=== PATIENT | male | born 1965 | race Two or more races ===

== ENCOUNTER 2018-12-11 10:09 | Inpatient (IN) | payer OTHER ==
[~2018-12-11] VITALS: Ht 182.9 cm; Wt 98.9 kg
[2018-12-11] MEDS ORDERED: SOD CHLORIDE 0.9% 1,000 ML IV STA (10:51)
--- NOTE | 2018-12-11 10:53 | ERD ---
ER Documentation Chief Complaint Chief Complaint PALPITATIONS FOR A WHILE, SOB GETTING WORKS COUPLE OF WKS HPI 53-year-old man complaining of 2 weeks of palpitations and shortness of breath, dyspnea on exertion. Patient states he has had palpitations for longer than 2 weeks but the shortness of breath is somewhat new. Patient denies cough, no fevers or chills, no calf or leg swelling. Patient denies alcoholism or heavy drinking, denies history of atrial fibrillation or thyroid problems. ROS All systems reviewed and are negative except as per history of present illness. Medications Home Meds No Active Prescriptions or Reported Meds Allergies Allergies: Coded Allergies: No Known Allergy (Unverified , 12/11/18) PMhx/Soc History of Surgery: No Anesthesia Reaction: No Hx Neurological Disorder: No Hx Respiratory Disorders: No Hx Cardiac Disorders: No Hx Psychiatric Problems: No Hx Miscellaneous Medical Probl: Yes (LIVER CIRRHOSIS) Hx Alcohol Use: No Hx Substance Use: No Hx Tobacco Use: Yes (QUIT ) FmHx Family History: No diabetes Physical Exam Vitals Vital Signs Date Temp Pulse Resp B/P (MAP) Pulse Ox O2 O2 Flow FiO2 Time Delivery Rate 12/11/18 90 15 117/94 99 Room Air 12:10 (102) 12/11/18 97.7 76 18 146/99 99 10:15 (115) Physical Exam GENERAL: Well-developed, well-nourished, well-hydrated, in no apparent distress, looks nontoxic in appearance HEENT: Moist mucous membranes, pink conjunctiva, no cervical spine tenderness or step-off deformities, no goiter, no jaundice or icterus, extraocular movements intact without pain. \ NEURO: Alert and oriented 3, cranial nerves II through XII intact bilaterally, pupils equal round reactive to light, no focal deficits or facial asymmetry, sensation intact distally Strength 5/5 in upper and lower extremities bilaterally CARDIAC: Tachycardic and regular, no murmurs LUNGS: Clear bilaterally no wheezing crackles or stridor ABDOMEN: Soft nontender, no guarding, no rigidity, no rebound, no psoas sign no obturator sign. Normoactive bowel sounds SKIN: Warm and dry to touch, no abrasions, contusions, or hematomas, no lacerations, no ecchymosis, no target lesions, and without ulcers EXTREMITIES: No clubbing cyanosis or edema, calves are bilaterally symmetrical, no Homans sign, no popliteal cord sign. Distal pulses equal and bilateral PSYCH: Normal affect without agitation or irritability Result Diagram: 12/11/18 1040 12/11/18 1040 Results 24 hrs Laboratory Tests Test 12/11/18 10:40 White Blood Count 7.1 10^3/ul Red Blood Count 5.76 10^6/ul Hemoglobin 17.4 g/dl Hematocrit 50.2 % Mean Corpuscular Volume 87.2 fl Mean Corpuscular Hemoglobin 30.2 pg Mean Corpuscular Hemoglobin Concent 34.7 g/dl Red Cell Distribution Width 13.0 % Platelet Count 150 10^3/UL Mean Platelet Volume 12.9 fl Immature Granulocytes % 0.300 % Neutrophils % 47.5 % Lymphocytes % 40.6 % Monocytes % 7.4 % Eosinophils % 3.5 % Basophils % 0.7 % Nucleated Red Blood Cells % 0.0 /100WBC Immature Granulocytes # 0.020 10^3/ul Neutrophils # 3.4 10^3/ul Lymphocytes # 2.9 10^3/ul Monocytes # 0.5 10^3/ul Eosinophils # 0.3 10^3/ul Basophils # 0.1 10^3/ul Nucleated Red Blood Cells # 0.0 10^3/ul Sodium Level 144 mmol/L Potassium Level 4.0 mmol/L Chloride Level 107 mmol/L Carbon Dioxide Level 28 mmol/L Anion Gap 9 Blood Urea Nitrogen 17 mg/dl Creatinine 1.09 mg/dl Est Glomerular Filtrat Rate mL/min > 60 mL/min Glucose Level 95 mg/dl Calcium Level 10.0 mg/dl Total Bilirubin 0.8 mg/dl Direct Bilirubin 0.00 mg/dl Indirect Bilirubin 0.8 mg/dl Aspartate Amino Transf (AST/SGOT) 45 IU/L Alanine Aminotransferase (ALT/SGPT) 74 IU/L Alkaline Phosphatase 82 IU/L Troponin I < 0.012 ng/ml B-Type Natriuretic Peptide 649 PG/ML Total Protein 7.7 g/dl Albumin 4.6 g/dl Globulin 3.10 g/dl Albumin/Globulin Ratio 1.48 Lipase 224 U/L Thyroid Stimulating Hormone (TSH) < 0.015 MIU/L Free Triiodothyronine (T3) pg/mL 6.75 pg/ml Current Medications Medications Dose Sig/Jesse Start Time Status Last (Trade) Ordered Route PRN Stop Time Admin Dose Reason Admin Aspirin 162 mg ONCE ONCE 12/11/18 DC 12/11/18 (Aspirin) PO 11:00 10:59 12/11/18 11:01 Sodium 1,000 ml @ Q1H STAT 12/11/18 DC 12/11/18 Chloride 1,000 mls/hr IV 10:51 11:00 12/11/18 11:50 Propranolol 40 mg ONCE ONCE 12/11/18 DC 12/11/18 HCl PO 11:30 11:18 (Inderal) 12/11/18 11:31 Procedures/MDM IV line was established patient was placed on cardiac rehabilitation program director rhythm strip revealed a you made fun of improved only over and over again narrow complex tachycardia at 160 bpm with upright P and T waves. Patient was afebrile EKG performed, read by me revealed an atrial fibrillation with rapid ventricular rate at 149 bpm, normal axis, right ventricular conduction delay QRS duration of 104 ms, no concerning ST elevations or depressions noted I administered 1 L normal saline IV, aspirin 162 mg p.o. for cardioprotective measures, propranolol 40 mg p.o. x1 One AP view of the chest performed, read by me reveals no acute infiltrates, normal mediastinum, sharp costophrenic and cardiac borders, no air under the diaphragm. Otherwise unremarkable chest x-ray. CBC and electrolytes were normal, liver function tests were normal, troponin was negative. EKG #2 was performed, read by me revealed an atrial fibrillation with rapid ventricular response at 101 bpm, normal axis, right ventricular conduction delay QRS duration 101 ms, no concerning ST elevations or depressions noted. Critical Care: Time: 44 minutes, this was time separate from other billable procedures. Treatments/Evaluations: Close monitoring and treatment of unstable vital signs, cardiorespiratory, and neurologic status, while maintaining tight balance of fluid, respiratory, and cardiac interventions. TSH level was low, free T3 level elevated Patient will be admitted to telemetry setting for continued medical management and possible cardiology and endocrinology consultations Departure Diagnosis: Primary Impression: Atrial fibrillation with RVR Additional Impression: Hyperthyroidism Condition: DOMINIQUE Veloz MD Dec 11, 2018 10:53
[2018-12-11] MEDS ORDERED: ASPIRIN 81 MG TAB PO ONE (11:00)
[2018-12-11] MEDS ORDERED: PROPRANOLOL 40 MG TAB PO ONE (11:30)
--- NOTE | 2018-12-11 15:53 | HP ---
Date/Time of Note Date/Time of Note DATE: 12/11/18 TIME: 15:53 Assessment/Plan VTE Prophylaxis Pharmacological prophylaxis: LMWH Lines/Catheters IV [facility]from [facility] Saline Lock Assessment/Plan Hospital Course 53-year-old male with a remote history of cirrhosis secondary to hepatitis C currently in remission who came to the emergency room with dyspnea and palpitations and was found to have evidence of A. fib with RVR and hyperthyroidism, who was admitted to inpatient setting for further treatment evaluation. 1. A. fib with RVR. -Continue rate control with beta-blockers. -Obtain cardiology consult. -Obtain 2D echocardiogram to evaluate left ventricular ejection fraction. -Therapeutic anticoagulation will be deferred to cardiology. 2. Hyperthyroidism. -Will start the patient on appropriate therapy. -Obtain endocrinology evaluation. 3. History of hepatitis C and cirrhosis. 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 4. Alcohol abuse. -Start thiamine supplementation. Plan: The patient will be admitted to inpatient telemetry floor. The patient will be started on a low-cholesterol diet. The patient will be started on DVT prophylaxis. The patient will remain a full code. Activities will be as tolerated. The rest of the patient's management will be based on the clinical course, inputs from consultants, and the results of diagnostic studies. Based on the patient's clinical presentation, he most probably requires at least 2 midnights' stay for further management and evaluation of his clinical presentation. The patient was seen in collaboration with Dr. Sharma. Result Diagram: 12/11/18 1040 12/11/18 1040 Results 24hrs Laboratory Tests Test 12/11/18 10:40 White Blood Count 7.1 Red Blood Count 5.76 Hemoglobin 17.4 Hematocrit 50.2 Mean Corpuscular Volume 87.2 Mean Corpuscular Hemoglobin 30.2 Mean Corpuscular Hemoglobin Concent 34.7 Red Cell Distribution Width 13.0 Platelet Count 150 Mean Platelet Volume 12.9 H Immature Granulocytes % 0.300 Neutrophils % 47.5 Lymphocytes % 40.6 Monocytes % 7.4 Eosinophils % 3.5 Basophils % 0.7 Nucleated Red Blood Cells % 0.0 Immature Granulocytes # 0.020 Neutrophils # 3.4 Lymphocytes # 2.9 Monocytes # 0.5 Eosinophils # 0.3 Basophils # 0.1 Nucleated Red Blood Cells # 0.0 Sodium Level 144 Potassium Level 4.0 Chloride Level 107 Carbon Dioxide Level 28 Anion Gap 9 Blood Urea Nitrogen 17 Creatinine 1.09 Est Glomerular Filtrat Rate mL/min > 60 Glucose Level 95 Calcium Level 10.0 Total Bilirubin 0.8 Direct Bilirubin 0.00 Indirect Bilirubin 0.8 Aspartate Amino Transf (AST/SGOT) 45 Alanine Aminotransferase (ALT/SGPT) 74 H Alkaline Phosphatase 82 Troponin I < 0.012 B-Type Natriuretic Peptide 649 H Total Protein 7.7 Albumin 4.6 Globulin 3.10 Albumin/Globulin Ratio 1.48 Lipase 224 Thyroid Stimulating Hormone (TSH) < 0.015 L Free Thyroxine 2.09 H Free Triiodothyronine (T3) pg/mL 6.75 H HPI/ROS Admit Date/Time Admit Date/Time Hx of Present Illness Reason for admission: Dyspnea, palpitations, A. fib with RVR in the emergency room. Consultants 1. Lang Long MD, Cardiology. 2. Phillips MD, Endocrinology. This is a 53-year-old male with past medical history of hepatitis C and underlying cirrhosis currently in remission who came to the emergency room with chief complaint of dyspnea and palpitations. The patient verbalized that he has had intermittent episodes of palpitations for the past few weeks or so. He sought medical attention at the local clinic and they were unable to help him. He came to the emergency room on 12/11/2018 because of significant shortness of breath. In the emergency room, the patient was noticed to be in atrial fibri llation with rapid ventricular response. The patient was given a single dose of propranolol with improvement in the heart rate. The patient denied any chest pain. He was complaining of nonspecific dizziness. He also complained of floaters occasionally. He denied any nausea, vomiting, diaphoresis, fevers, or chills. In the emergency room at [facility], he was noticed to have A. fib with RVR. He was given aspirin along with beta-blockers. The patient's initial troponins were negative. The patient was noted to have evidence of underlying hyperthyroidism. ROS Constitutional: no complaints Eyes: other (Floaters) ENT: no complaints Respiratory: shortness of breath Cardiovascular: lightheadedness, palpitations Gastrointestinal: no complaints Genitourinary: no complaints Musculoskeletal: no complaints Skin: no complaints Neurologic: no complaints Endocrine: no complaints Lymphatic: no complaints Psychological: no complaints Immunologic: no complaints PMH/Family/Social Past Medical History 1. Cirrhosis secondary to hepatitis C, status post therapy. 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 Lives at home with his family. Alcohol Use: heavy Smoking Status: Former smoker Drug Use: none Exam/Review of Systems Vital Signs Vitals Vital Signs Date Temp Pulse Resp B/P (MAP) Pulse Ox O2 O2 Flow FiO2 Time Delivery Rate 12/11/18 96 16 126/96 98 Room Air 14:32 (106) 12/11/18 97.7 10:15 Exam Exam General: Adequately build 53 year-old male lying in bed in no apparent distress. HEENT: Normocephalic, atraumatic. Eyes: Anicteric sclerae, conjunctivae clear. ENT: Nasal septum midline, oral mucosa moist. Neck supple, no JVD noticed. Respiratory: Bilaterally clear breath sounds. No use of accessory muscles of respiration. No adventitious breath sounds. Cardiovascular: S1, S2 heard. Irregularly irregular rhythm. Abdomen: Soft, nontender, and nondistended. Bowel sounds positive in all 4 quadrants. Genitourinary: Deferred. Extremities: No cyanosis, no clubbing, no edema. Peripheral pulses palpable. Neurologic: Cranial nerves II through XII grossly intact. The patient is awake, alert, and oriented. Skin: Normal skin turgor. No skin rashes. Additional Comments CXR IMPRESSION: Mild Cardiomegaly. EARLE ABBASI NP Dec 11, 2018 15:53
--- NOTE | 2018-12-11 16:14 | CONS ---
Assessment/Plan Assessment/Plan Problems: (1) Hyperthyroidism Status: Acute Comment: This is a new diagnosis. Based on his laboratory testing I do not believe this is euthyroid sick I believe this is real thyrotoxicosis. Will be started on methimazole therapy. This is not thyroid storm he does not need em ergency procedures. (2) Atrial fibrillation with RVR Status: Acute Comment: As per primary care team and possible cardiology. Please note that this may be from atrial fibrillation but given his alcohol usage he also have to keep that in the differential. Beta-blockade especially given the history of cirrhosis would be a consideration I would recommend using nadolol in this case (3) Hepatic cirrhosis due to chronic hepatitis C infection Status: Chronic Comment: Noted and status post Harvoni treatment. He is under the care of Dr. Bernard Talavera (4) Esophageal varices determined by endoscopy Status: Chronic Comment: Noted. (5) Alcohol abuse, episodic Status: Chronic Comment: Thiamine treatment Consultation Date/Type/Reason Admit Date/Time December 11, 2018 Date of Consultation: Dec 11, 2018 Type of Consult Endocrinology Reason for Consultation Thyrotoxicosis is a new diagnosis presenting his A. fib with rapid ventricular response and dyspnea Requesting Provider: EARLE ABBASI NP Date/Time of Note DATE: 12/11/18 TIME: 16:07 Hx of Present Illness Pleasant 53-year-old [place] gentleman-, who had no known prior history of thyroid disorder. He had been noting a sensation of palpitations for several weeks and progressively worsening dyspnea especially dyspnea on exertion. Is also having a sense of anxiety. He denies any temperature intolerance for heat or cold, he denies any hyper defecation, he denies any tremor, he denies any weight loss. He has not been on any medications in the recent past. In the somewhat more distant past he had just completed a course of Harvoni for chronic active hepatitis C under the guidance of Dr. Bernard Talavera Constitutional: no complaints (No fevers chills or sweats) Eyes: no complaints ENT: no complaints Respiratory: shortness of breath (On exertion) Cardiovascular: palpitations Gastrointestinal: no complaints Genitourinary: no complaints Musculoskeletal: no complaints Skin: no complaints Neurologic: no complaints Endocrine: no complaints Past Medical History Medical History: hepatitis (Chronic active hepatitis C with history of varices in the esophagus but not in the stomach), hyperthyroid, other (Smoking none x10 years; active alcohol consumption) Home Meds No Active Prescriptions or Reported Meds Medications Current Medications Metoprolol Tartrate (Lopressor) 25 mg BID PO ; Start 12/11/18 at 21:00; Status UNV IV Flush (NS 3 ml) 3 ml PER PROTOCOL IV ; Start 12/11/18 at 16:30; Status UNV Ondansetron HCl (Zofran Inj) 4 mg Q6H PRN IV NAUSEA/VOMITING; Start 12/11/18 at 16:30; Status UNV Acetaminophen (Tylenol Tab) 650 mg Q6H PRN PO .PAIN 1-3 OR TEMP; Start 12/11/18 at 16:30; Status UNV Enoxaparin Sodium (Lovenox) 40 mg DAILY SC ; Start 12/12/18 at 09:00; Status UNV Allergies: Coded Allergies: No Known Allergy (Unverified , 12/11/18) Past Surgical History Past Surgical Hx: no surgical history Family History Significant Family History: no pertinent family hx Social History For near [facility] and raised there he lives here with his family 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 Alcohol Use: occasionally (He reports he drinks at least 3 days a week on quantification he is averaging closer to 10 to 14 units/week) Smoking Status: Former smoker (Quit smoking 10 years ago) Drug Use: none Exam/Review of Systems Exam Vitals Vital Signs Date Temp Pulse Resp B/P (MAP) Pulse Ox O2 O2 Flow FiO2 Time Delivery Rate 12/11/18 96 16 126/96 98 Room Air 14:32 (106) 12/11/18 97.7 10:15 Exam Past male lying on a gurney in the emergency room bed 6 Constitutional: alert, oriented Head: normocephalic, atraumatic ENMT: nl external ears & nose, nl lips & teeth, nl nasal mucosa & septum, mucosa pink and moist Neck: supple, non-tender, thyromegaly (Modestly enlarged) Respiratory: clear to auscultation, normal air movement Cardiovascular: nl pulses, irregular rhythm Extremities: normal pulses Neurological: other (No tremor) Skin: other (Letter angiomata on the anterior chest) Results Result Diagram: 12/11/18 1040 12/11/18 1040 Results 24hrs Laboratory Tests Test 12/11/18 10:40 White Blood Count 7.1 Red Blood Count 5.76 Hemoglobin 17.4 Hematocrit 50.2 Mean Corpuscular Volume 87.2 Mean Corpuscular Hemoglobin 30.2 Mean Corpuscular Hemoglobin Concent 34.7 Red Cell Distribution Width 13.0 Platelet Count 150 Mean Platelet Volume 12.9 H Immature Granulocytes % 0.300 Neutrophils % 47.5 Lymphocytes % 40.6 Monocytes % 7.4 Eosinophils % 3.5 Basophils % 0.7 Nucleated Red Blood Cells % 0.0 Immature Granulocytes # 0.020 Neutrophils # 3.4 Lymphocytes # 2.9 Monocytes # 0.5 Eosinophils # 0.3 Basophils # 0.1 Nucleated Red Blood Cells # 0.0 Sodium Level 144 Potassium Level 4.0 Chloride Level 107 Carbon Dioxide Level 28 Anion Gap 9 Blood Urea Nitrogen 17 Creatinine 1.09 Est Glomerular Filtrat Rate mL/min > 60 Glucose Level 95 Calcium Level 10.0 Total Bilirubin 0.8 Direct Bilirubin 0.00 Indirect Bilirubin 0.8 Aspartate Amino Transf (AST/SGOT) 45 Alanine Aminotransferase (ALT/SGPT) 74 H Alkaline Phosphatase 82 Troponin I < 0.012 B-Type Natriuretic Peptide 649 H Total Protein 7.7 Albumin 4.6 Globulin 3.10 Albumin/Globulin Ratio 1.48 Lipase 224 Thyroid Stimulating Hormone (TSH) < 0.015 L Free Thyroxine 2.09 H Free Triiodothyronine (T3) pg/mL 6.75 H Medications Medication Current Medications Metoprolol Tartrate (Lopressor) 25 mg BID PO ; Start 12/11/18 at 21:00; Status UNV IV Flush (NS 3 ml) 3 ml PER PROTOCOL IV ; Start 12/11/18 at 16:30; Status UNV Ondansetron HCl (Zofran Inj) 4 mg Q6H PRN IV NAUSEA/VOMITING; Start 12/11/18 at 16:30; Status UNV Acetaminophen (Tylenol Tab) 650 mg Q6H PRN PO .PAIN 1-3 OR TEMP; Start 12/11/18 at 16:30; Status UNV Enoxaparin Sodium (Lovenox) 40 mg DAILY SC ; Start 12/12/18 at 09:00; Status UNV ARIA YANG MD Dec 11, 2018 16:14
[2018-12-11] MEDS ORDERED: NACL 0.9% 3 ML SYG IV SCH (16:30)
[2018-12-11] MEDS ORDERED: METHIMAZOLE 5 MG TAB PO ONE (16:30)
[2018-12-11] MEDS ORDERED: ACETAMINOPHEN 325 MG TAB PO PRN (16:30)
[2018-12-11] MEDS ORDERED: ONDANSETRON 4 MG INJ IV PRN (16:30)
[2018-12-11] MEDS ORDERED: THIAMINE 200 MG INJ IM ONE (16:30)
[2018-12-11] MEDS ORDERED: NADOLOL 40 MG TAB PO SCH (17:30)
[2018-12-11 20:34] VITALS: PULSE 95
[2018-12-11 20:40] VITALS: Ht 182.9 cm; Wt 98.9 kg
[2018-12-11 20:45] VITALS: BP 121/89; PULSE 93; RESP 20
[2018-12-11] MEDS: METOPROLOL 25 MG TAB PO SCH (22:00)
[2018-12-12] VITALS (10 sets, daily range): BP systolic 111–129; BP diastolic 59–91; PULSE 67–91; RESP 17–22
[2018-12-12] MEDS ORDERED: traZODone 50 MG TAB PO ONE (02:30)
--- NOTE | 2018-12-12 07:53 | CONS ---
Assessment/Plan Assessment/Plan Hospital Course (Demo Recall) Atrial fibrillation rapid ventricular response probably secondary to hyperthyroidism Hypothyroidism History hepatitis C History of liver cirrhosis and possible esophageal varices Alcohol use Recommendations Continue the beta-ignacio and thyroid management as per endocrine recommendations Heart rate is currently under good control Ideally patient should be fully anticoagulated and if he does not convert to sinus rhythm in 1 or 2 months he should have a cardioversion done. However I am concerned about his bleeding risk given his liver cirrhosis and hepatitis. Patient said he was supposed to have endoscopy and follow-up done by his metal buggy operator but he has not seen him lately. I recommend GI evaluation and if it is felt safe by GI to start full anticoagulation he should be anticoagulated with either Xarelto or Eliquis or other anticoagulant Echocardiogram is pending Thank you FRANCHESKA SANDERS MD [facility] Consultation Date/Type/Reason Admit Date/Time December 11, 2018 Date of Consultation: Dec 12, 2018 Type of Consult Cardiology Reason for Consultation afib Requesting Provider: EARLE ABBASI NP Date/Time of Note DATE: 12/12/18 TIME: 07:49 Hx of Present Illness Interventional cardiology consultation note Chief complaint: Palpitations Reason for consult: Sachin. gómez History of present illness: Thank you for this referral. This is a pleasant 53-year-old gentleman with history of hepatitis C cirrhosis status post treatment, history of possibly esophageal varices previously has been followed up by Dr. Holguin per his report who has had palpitation over the past few weeks. Patient came to emergency room was noted to be in atrial fibrillation rapid ventricular response. He was also noted to be severely hyperthyroid. He has been placed already on beta-ignacio and methimazole by endocrine and his heart is currently under good control. He denies any chest pain or pressure to me. Denies any PND orthopnea Allergies: No known drug allergies Medications were reviewed as per medical reconciliation sheet Family history: No early coronary artery disease Social history: Occasionally drinks. Past medical history: As above only Review of system: Patient denies all others except for above-mentioned Past Medical History Home Meds No Active Prescriptions or Reported Meds Medications Current Medications Metoprolol Tartrate (Lopressor) 25 mg BID PO Last administered on 12/11/18at 22:00; Admin Dose 25 MG; Start 12/11/18 at 21:00 IV Flush (NS 3 ml) 3 ml PER PROTOCOL IV ; Start 12/11/18 at 16:30 Ondansetron HCl (Zofran Inj) 4 mg Q6H PRN IV NAUSEA/VOMITING; Start 12/11/18 at 16:30 Acetaminophen (Tylenol Tab) 650 mg Q6H PRN PO .PAIN 1-3 OR TEMP; Start 12/11/18 at 16:30 Enoxaparin Sodium (Lovenox) 40 mg DAILY SC ; Start 12/12/18 at 09:00 Nadolol (Corgard) 40 mg AC DINNER PO Last administered on 12/11/18at 17:47; Admin Dose 40 MG; Start 12/11/18 at 17:30 Thiamine HCl (Vitamin B1) 100 mg AC BREAKFAST PO ; Start 12/12/18 at 07:00; Stop 12/19/18 at 06:59 Methimazole (Tapazole) 10 mg AC BREAKFAST PO ; Start 12/12/18 at 07:00 Allergies: Coded Allergies: No Known Allergy (Unverified , 12/11/18) Past Surgical History Past Surgical Hx: no surgical history Social History Alcohol Use: heavy Smoking Status: Former smoker Drug Use: none Exam/Review of Systems Vital Signs Vitals Vital Signs Date Temp Pulse Resp B/P (MAP) Pulse Ox O2 O2 Flow FiO2 Time Delivery Rate 12/12/18 98.2 78 18 125/81 96 04:58 (96) 12/11/18 Room Air 20:02 Intake and Output 12/11/18 12/11/18 12/12/18 1515:00 23:00 07:00 IntakeIntake Total 120 ml 240 ml BalanceBalance 120 ml 240 ml Exam Exam General: no acute distress HEENT: NC/AT. pupils are equal. round. NECK: NO JVD. no stridor. CV: Irregularly irregular. systolic murmur; no gallop or rubs. PULM: no wheezing or rhonchi. GI: SOFT, NT, ND, no rebound or guarding Extremity: trace B/L LE edema. no clubbing. neuro: awake and alert, OX3. Psych: calm and pleasant rectal: deferred : normal EKG showed no atrial fibrillation rapid ventricular response Labs Result Diagram: 12/12/18 0623 12/11/18 1040 Results 24hrs Laboratory Tests Test 12/11/18 10:40 12/12/18 06:23 White Blood Count 7.1 8.5 Red Blood Count 5.76 5.74 Hemoglobin 17.4 17.3 Hematocrit 50.2 50.7 Mean Corpuscular Volume 87.2 88.3 Mean Corpuscular Hemoglobin 30.2 30.1 Mean Corpuscular Hemoglobin Concent 34.7 34.1 Red Cell Distribution Width 13.0 13.2 Platelet Count 150 151 Mean Platelet Volume 12.9 H 13.0 H Immature Granulocytes % 0.300 0.200 Neutrophils % 47.5 43.9 Lymphocytes % 40.6 42.3 Monocytes % 7.4 8.2 Eosinophils % 3.5 4.8 Basophils % 0.7 0.6 Nucleated Red Blood Cells % 0.0 0.0 Immature Granulocytes # 0.020 0.020 Neutrophils # 3.4 3.7 Lymphocytes # 2.9 3.6 H Monocytes # 0.5 0.7 Eosinophils # 0.3 0.4 Basophils # 0.1 0.1 Nucleated Red Blood Cells # 0.0 0.0 Sodium Level 144 Potassium Level 4.0 Chloride Level 107 Carbon Dioxide Level 28 Anion Gap 9 Blood Urea Nitrogen 17 Creatinine 1.09 Est Glomerular Filtrat Rate mL/min > 60 Glucose Level 95 Hemoglobin A1c 5.1 Calcium Level 10.0 Total Bilirubin 0.8 Direct Bilirubin 0.00 Indirect Bilirubin 0.8 Aspartate Amino Transf (AST/SGOT) 45 Alanine Aminotransferase (ALT/SGPT) 74 H Alkaline Phosphatase 82 Troponin I < 0.012 < 0.012 B-Type Natriuretic Peptide 649 H Total Protein 7.7 Albumin 4.6 Globulin 3.10 Albumin/Globulin Ratio 1.48 Lipase 224 Thyroid Stimulating Hormone (TSH) < 0.015 L Free Thyroxine 2.09 H Free Triiodothyronine (T3) pg/mL 6.75 H Phosphorus Level 4.7 Magnesium Level 1.9 Creatine Kinase 100 Creatine Kinase Index 0.9 Creatinine Kinase MB (Mass) 0.94 Triglycerides Level 127 Cholesterol Level 166 LDL Cholesterol, Calculated 113 HDL Cholesterol 28 Cholesterol/HDL Ratio 5.9 Medications Medications Current Medications Metoprolol Tartrate (Lopressor) 25 mg BID PO Last administered on 12/11/18at 22:00; Admin Dose 25 MG; Start 12/11/18 at 21:00 IV Flush (NS 3 ml) 3 ml PER PROTOCOL IV ; Start 12/11/18 at 16:30 Ondansetron HCl (Zofran Inj) 4 mg Q6H PRN IV NAUSEA/VOMITING; Start 12/11/18 at 16:30 Acetaminophen (Tylenol Tab) 650 mg Q6H PRN PO .PAIN 1-3 OR TEMP; Start 12/11/18 at 16:30 Enoxaparin Sodium (Lovenox) 40 mg DAILY SC ; Start 12/12/18 at 09:00 Nadolol (Corgard) 40 mg AC DINNER PO Last administered on 12/11/18at 17:47; Admin Dose 40 MG; Start 12/11/18 at 17:30 Thiamine HCl (Vitamin B1) 100 mg AC BREAKFAST PO ; Start 12/12/18 at 07:00; Stop 12/19/18 at 06:59 Methimazole (Tapazole) 10 mg AC BREAKFAST PO ; Start 12/12/18 at 07:00 FRANCHESKA SANDERS MD Dec 12, 2018 07:53
[2018-12-12] MEDS: THIAMINE 100 MG TAB PO SCH (08:44)
[2018-12-12] MEDS: METHIMAZOLE 5 MG TAB PO SCH (08:45)
--- NOTE | 2018-12-12 08:52 | CONS ---
Assessment/Plan Assessment/Plan Hospital Course (Demo Recall) 53 yo male with ESLD presented for SOB and palpitations x [address] Holguin has been asked to evaluate patient for clearance to start anti coagulants 1. Liver cirrhosis with h/o hep C 2. Atrial fibrillation with rapid ventricular response 3. SOB 4. Palpitations secondary to hyperthyroidism 5. H/O hypothyroid but currently is hyperthyroid 6. H/O esophageal varices 7. Newly diagnosed Cardiomyopathy with EF of 30% Plan: EGD tomorrow, no anti coagulants, Labs in am, NPO INR stat Pt examined and plan of care discussed with Dr. Holguin Consultation Date/Type/Reason Admit Date/Time December 11, 2018 Date/Time of Note DATE: 12/12/18 TIME: 08:32 Hx of Present Illness 53 yo male with h/o ESLD, h/o hep C, esophageal varices presents with palpitations, SOB and dyspnea of exertion x 2 weeks. Palpitations pt has been having but the SOB began two weeks ago. Currently pt denies SOB. He denies any chest pain, abd pain. No nausea. Denies melena or hematochezia. Denies cough, fever or chills. Past Medical History Medical History: hepatitis (Chronic active hepatitis C with history of varices in the esophagus but not in the stomach), hyperthyroid, other (Smoking none x10 years; active alcohol consumption) Home Meds No Active Prescriptions or Reported Meds Medications Current Medications Metoprolol Tartrate (Lopressor) 25 mg BID PO Last administered on 12/11/18at 22:00; Admin Dose 25 MG; Start 12/11/18 at 21:00 IV Flush (NS 3 ml) 3 ml PER PROTOCOL IV ; Start 12/11/18 at 16:30 Ondansetron HCl (Zofran Inj) 4 mg Q6H PRN IV NAUSEA/VOMITING; Start 12/11/18 at 16:30 Acetaminophen (Tylenol Tab) 650 mg Q6H PRN PO .PAIN 1-3 OR TEMP; Start 12/11/18 at 16:30 Enoxaparin Sodium (Lovenox) 40 mg DAILY SC ; Start 12/12/18 at 09:00 Nadolol (Corgard) 40 mg AC DINNER PO Last administered on 12/11/18at 17:47; Adm in Dose 40 MG; Start 12/11/18 at 17:30 Thiamine HCl (Vitamin B1) 100 mg AC BREAKFAST PO ; Start 12/12/18 at 07:00; Stop 12/19/18 at 06:59 Methimazole (Tapazole) 10 mg AC BREAKFAST PO ; Start 12/12/18 at 07:00 Allergies: Coded Allergies: No Known Allergy (Unverified , 12/11/18) Past Surgical History Past Surgical Hx: no surgical history Social History Alcohol Use: heavy Smoking Status: Former smoker Drug Use: none Exam/Review of Systems Exam Vitals Vital Signs Date Temp Pulse Resp B/P (MAP) Pulse Ox O2 O2 Flow FiO2 Time Delivery Rate 12/12/18 97.6 75 22 125/83 Room Air 07:56 (97) 12/12/18 96 04:58 Intake and Output 12/11/18 12/11/18 12/12/18 1414:59 22:59 06:59 IntakeIntake Total 120 ml 420 ml BalanceBalance 120 ml 420 ml Constitutional: alert, oriented, well developed Psych: no complaints Head: normocephalic Eyes: nl sclera, PERRL ENMT: mucosa pink and moist Respiratory: clear to auscultation Gastrointestinal: soft, non-tender, bowel sounds Musculoskeletal: nl gait and stance Extremities: normal pulses Neurological: nl mental status Results Result Diagram: 12/12/1862212/12/18 0623 Results 24hrs Laboratory Tests Test 12/11/18 10:40 12/12/18 06:23 White Blood Count 7.1 8.5 Red Blood Count 5.76 5.74 Hemoglobin 17.4 17.3 Hematocrit 50.2 50.7 Mean Corpuscular Volume 87.2 88.3 Mean Corpuscular Hemoglobin 30.2 30.1 Mean Corpuscular Hemoglobin Concent 34.7 34.1 Red Cell Distribution Width 13.0 13.2 Platelet Count 150 151 Mean Platelet Volume 12.9 H 13.0 H Immature Granulocytes % 0.300 0.200 Neutrophils % 47.5 43.9 Lymphocytes % 40.6 42.3 Monocytes % 7.4 8.2 Eosinophils % 3.5 4.8 Basophils % 0.7 0.6 Nucleated Red Blood Cells % 0.0 0.0 Immature Granulocytes # 0.020 0.020 Neutrophils # 3.4 3.7 Lymphocytes # 2.9 3.6 H Monocytes # 0.5 0.7 Eosinophils # 0.3 0.4 Basophils # 0.1 0.1 Nucleated Red Blood Cells # 0.0 0.0 Sodium Level 144 144 Potassium Level 4.0 5.0 Chloride Level 107 106 Carbon Dioxide Level 28 30 Anion Gap 9 8 Blood Urea Nitrogen 17 18 Creatinine 1.09 1.05 Est Glomerular Filtrat Rate mL/min > 60 > 60 Glucose Level 95 83 Hemoglobin A1c 5.1 Calcium Level 10.0 10.4 H Total Bilirubin 0.8 1.2 Direct Bilirubin 0.00 0.00 Indirect Bilirubin 0.8 1.2 H Aspartate Amino Transf (AST/SGOT) 45 40 Alanine Aminotransferase (ALT/SGPT) 74 H 70 H Alkaline Phosphatase 82 79 Troponin I < 0.012 < 0.012 B-Type Natriuretic Peptide 649 H Total Protein 7.7 7.2 Albumin 4.6 4.0 Globulin 3.10 3.20 Albumin/Globulin Ratio 1.48 1.25 Lipase 224 Thyroid Stimulating Hormone (TSH) < 0.015 L Free Thyroxine 2.09 H Free Triiodothyronine (T3) pg/mL 6.75 H Erythrocyte Sedimentation Rate 2.0 Phosphorus Level 4.7 Magnesium Level 1.9 Creatine Kinase 100 Creatine Kinase Index 0.9 Creatinine Kinase MB (Mass) 0.94 Triglycerides Level 127 Cholesterol Level 166 LDL Cholesterol, Calculated 113 HDL Cholesterol 28 Cholesterol/HDL Ratio 5.9 Medications Medication Current Medications Metoprolol Tartrate (Lopressor) 25 mg BID PO Last administered on 12/11/18at 22:00; Admin Dose 25 MG; Start 12/11/18 at 21:00 IV Flush (NS 3 ml) 3 ml PER PROTOCOL IV ; Start 12/11/18 at 16:30 Ondansetron HCl (Zofran Inj) 4 mg Q6H PRN IV NAUSEA/VOMITING; Start 12/11/18 at 16:30 Acetaminophen (Tylenol Tab) 650 mg Q6H PRN PO .PAIN 1-3 OR TEMP; Start 12/11/18 at 16:30 Enoxaparin Sodium (Lovenox) 40 mg DAILY SC ; Start 12/12/18 at 09:00 Nadolol (Corgard) 40 mg AC DINNER PO Last administered on 12/11/18at 17:47; Admin Dose 40 MG; Start 12/11/18 at 17:30 Thiamine HCl (Vitamin B1) 100 mg AC BREAKFAST PO ; Start 12/12/18 at 07:00; Stop 12/19/18 at 06:59 Methimazole (Tapazole) 10 mg AC BREAKFAST PO ; Start 12/12/18 at 07:00 ERIN BURRELL Dec 12, 2018 08:42
[2018-12-12] MEDS ORDERED: ENOXAPARIN 40 MG/0.4 ML SYG SC SCH (09:00)
--- NOTE | 2018-12-12 10:24 | RADRPT ---
Echocardiogram Report Patient Name: GLORIA GANPatient ID: [id number] : 1965 (53y 1m)Study Date: 12/12/2018 6:48:38 AM Gender: Christina #: [id number] Tech: Obdulia Waldo [facility] Location: [id number] Ref.Physician: EARLE ABBASI Height(Cm): BSA: Weight(Kg): Quality: AdequateAccount #: Procedures: Echocardiographic Report: Transthoracic echocardiogram with complete 2D, M-Mode, and doppler examination. Indications: Evaluate Left Ventricular function. Measurements: 2D/M Mode Doppler Measurement Value Normal Range Measurement Value Normal Range LVIDd 2D 6.0 [ 4.2 - 5.8 ] cm AV Peak Roger 0.9 [ 100.0 - 170.0 ] cm/sec LVIDs 2D 4.6 [ 2.5 - 4.0 ] cm AV Peak PG 4.0 [ 2.0 - 9.0 ] mmHg LVPWd 2D 1.2 [ 0.6 - 1.0 ] cm LVOT Peak Roger 0.7 [ 70.0 - 110.0 ] cm/sec IVSd 2D 0.9 [ 0.6 - 1.0 ] cm LVOT Peak PG 2.0 [ 2.0 - 6.0 ] mmHg AoR Diam 2D 3.0 [ 2.6 - 3.4 ] cm MV E Peak Roger 0.8 [ 60.0 - 130.0 ] cm/sec EDV 2D 179.0 [ 62.0 - 150.0 ] ml MV Decel Time 158 [ 104 - 258 ] msec ESV 2D 97.8 [ 21.0 - 61.0 ] ml Lat E` Roger 0.1 [ 10.0 - 15.0 ] cm/sec EF 2D 45.4 [ 52.0 - 72.0 ] percent Lateral E/E` 6.8 [ 1.0 - 2.0 ] ratio LA Dimen 2D 4.5 [ 3.0 - 4.0 ] cm Findings: Left Ventricle: Mild concentric left ventricular hypertrophy. Mild enlargement of left ventricle cavity. Severe global left ventricular systolic dysfunction. Ejection fraction is visually estimated at 30 %. Tissue Doppler/Mitral Doppler indices are consistent with restrictive physiology with markedly elevated left atrial pressure (Stage III-IV diastolic dysfunction). Right Ventricle: Normal right ventricular size. Normal right ventricular systolic function. Left Atrium: There is mild enlargement of left atrium. Right Atrium: The right atrium is normal in size. Mitral Valve: Normal appearance and function of the mitral valve with trace physiologic regurgitation. Aortic Valve: No significant aortic stenosis or insufficiency. Aortic cusps appear mildly calcified. Tricuspid Valve: Normal appearance of the tricuspid valve. Unable to obtain RVSP due to minimal presence of tricuspid regurgitation. Pulmonic Valve: Pulmonic valve not well visualized. Pericardium: Normal pericardium with no significant pericardial effusion. Aorta: Normal aortic root. IVC: Normal size and normal respiratory collapse consistent with normal right atrial pressure. Conclusions: Mild concentric left ventricular hypertrophy. Mild enlargement of left ventricle cavity. Severe global left ventricular systolic dysfunction. Ejection fraction is visually estimated at 30 %. Tissue Doppler/Mitral Doppler indices are consistent with restrictive physiology with markedly elevated left atrial pressure (Stage III-IV diastolic dysfunction). There is mild enlargement of left atrium. Normal appearance and function of the mitral valve with trace physiologic regurgitation. No significant aortic stenosis or insufficiency. Aortic cusps appear mildly calcified. Normal appearance of the tricuspid valve. Unable to obtain RVSP due to minimal presence of tricuspid regurgitation. Electronically Signed By: Lang Long 2018-12-12 10:23:38 PDT
[2018-12-12] MEDS: METOPROLOL 25 MG TAB PO SCH ×2 (10:28→21:05)
--- NOTE | 2018-12-12 12:21 | PN ---
Date/Time of Note Date/Time of Note DATE: 12/12/18 TIME: 12:17 Assessment/Plan VTE Prophylaxis Risk score (from Ns)>0 risk: 1 SCD applied (from [facility]): No SCD contraindicated: other Pharmacological prophylaxis: LMWH Lines/Catheters IV Catheter Type (from [facility]): Saline Lock Assessment/Plan Hospital Course SUBJECTIVE: Denies any chest pain or palpitations. Denies any dyspnea. OBJECTIVE: Physical Exam General: Adequately build 53 year-old male lying in bed in no apparent distress. HEENT: Normocephalic, atraumatic. Eyes: Anicteric sclerae, conjunctivae clear. ENT: Nasal septum midline, oral mucosa moist. Neck supple, no JVD noticed. Respiratory: Bilaterally clear breath sounds. No use of accessory muscles of respiration. No adventitious breath sounds. Cardiovascular: S1, S2 heard. Irregularly irregular rhythm. Abdomen: Soft, nontender, and nondistended. Bowel sounds positive in all 4 quadrants. Genitourinary: Deferred. Extremities: No cyanosis, no clubbing, no edema. Peripheral pulses palpable. Neurologic: Cranial nerves II through XII grossly intact. The patient is awake, alert, and oriented. Skin: Normal skin turgor. No skin rashes. Labs & Vitals per chart ASSESSMENT & PLAN 53-year-old male with a remote history of cirrhosis secondary to hepatitis C currently in remission who came to the emergency room with dyspnea and palpitations and was found to have evidence of A. fib with RVR and hyperthyroidism, who was admitted to inpatient setting for further treatment evaluation. 1. A. fib with RVR. -Continue rate control with beta-blockers. -Cardiology following. -Therapeutic anticoagulation to be started with factor Xa inhibitors. 2. Hyperthyroidism. -Continue methimazole and beta-blockers. -Being followed by endocrinology. 3. Cardiomyopathy (newly diagnosed). -Ejection fraction of 30% -Etiology unclear. -Continue beta-blockers. -Initiate AVA inhibitor/ARB as per cardiology. 4. History of hepatitis C and cirrhosis. -Status post treatment with instrument checker. -Being followed by gastroenterology. 5. Alcohol abuse. -Continue thiamine supplementation. 6. Fluids, electrolytes, and nutrition. -Low-cholesterol diet. 7. DVT prophylaxis. -Initiate factor Xa inhibitors. 8. Plan. -Continue beta-blockers and methimazole. -Await further cardiology recommendations. -Continue inpatient monitoring. -Initiate ACEi and therapeutic anticoagulation. -Case management order put in to check with insurance if the patient qualifies for Eliquis as outpatient. The plan of care was explained to the patient. Case was discussed with the patient's tank tender. The patient was seen in collaboration with Dr. Sharma. Result Diagram: 12/12/18 0623 12/12/18 0623 Results 24hrs Laboratory Tests Test 12/12/18 06:23 12/12/18 09:18 White Blood Count 8.5 Red Blood Count 5.74 Hemoglobin 17.3 Hematocrit 50.7 Mean Corpuscular Volume 88.3 Mean Corpuscular Hemoglobin 30.1 Mean Corpuscular Hemoglobin Concent 34.1 Red Cell Distribution Width 13.2 Platelet Count 151 Mean Platelet Volume 13.0 H Immature Granulocytes % 0.200 Neutrophils % 43.9 Lymphocytes % 42.3 Monocytes % 8.2 Eosinophils % 4.8 Basophils % 0.6 Nucleated Red Blood Cells % 0.0 Immature Granulocytes # 0.020 Neutrophils # 3.7 Lymphocytes # 3.6 H Monocytes # 0.7 Eosinophils # 0.4 Basophils # 0.1 Nucleated Red Blood Cells # 0.0 Erythrocyte Sedimentation Rate 2.0 Sodium Level 144 Potassium Level 5.0 Chloride Level 106 Carbon Dioxide Level 30 Anion Gap 8 Blood Urea Nitrogen 18 Creatinine 1.05 Est Glomerular Filtrat Rate mL/min > 60 Glucose Level 83 Calcium Level 10.4 H Phosphorus Level 4.7 Magnesium Level 1.9 Total Bilirubin 1.2 Direct Bilirubin 0.00 Indirect Bilirubin 1.2 H Aspartate Amino Transf (AST/SGOT) 40 Alanine Aminotransferase (ALT/SGPT) 70 H Alkaline Phosphatase 79 Creatine Kinase 100 Creatine Kinase Index 0.9 Creatinine Kinase MB (Mass) 0.94 Troponin I < 0.012 Total Protein 7.2 Albumin 4.0 Globulin 3.20 Albumin/Globulin Ratio 1.25 Triglycerides Level 127 Cholesterol Level 166 LDL Cholesterol, Calculated 113 HDL Cholesterol 28 Cholesterol/HDL Ratio 5.9 Prothrombin Time 14.5 Prothrombin Time Ratio 1.1 INR International Normalized Ratio 1.12 Exam/Review of Systems Exam Vitals Vital Signs Date Temp Pulse Resp B/P (MAP) Pulse Ox O2 O2 Flow FiO2 Time Delivery Rate 12/12/18 98.0 83 21 122/78 96 Room Air 12:00 (93) Intake and Output 12/11/18 12/11/1819 1515:00 23:00 07:00 IntakeIntake Total 120 ml 420 ml BalanceBalance 120 ml 420 ml Results Results 24hrs Laboratory Tests Test 12/12/18 06:23 12/12/18 09:18 White Blood Count 8.5 Red Blood Count 5.74 Hemoglobin 17.3 Hematocrit 50.7 Mean Corpuscular Volume 88.3 Mean Corpuscular Hemoglobin 30.1 Mean Corpuscular Hemoglobin Concent 34.1 Red Cell Distribution Width 13.2 Platelet Count 151 Mean Platelet Volume 13.0 H Immature Granulocytes % 0.200 Neutrophils % 43.9 Lymphocytes % 42.3 Monocytes % 8.2 Eosinophils % 4.8 Basophils % 0.6 Nucleated Red Blood Cells % 0.0 Immature Granulocytes # 0.020 Neutrophils # 3.7 Lymphocytes # 3.6 H Monocytes # 0.7 Eosinophils # 0.4 Basophils # 0.1 Nucleated Red Blood Cells # 0.0 Erythrocyte Sedimentation Rate 2.0 Sodium Level 144 Potassium Level 5.0 Chloride Level 106 Carbon Dioxide Level 30 Anion Gap 8 Blood Urea Nitrogen 18 Creatinine 1.05 Est Glomerular Filtrat Rate mL/min > 60 Glucose Level 83 Calcium Level 10.4 H Phosphorus Level 4.7 Magnesium Level 1.9 Total Bilirubin 1.2 Direct Bilirubin 0.00 Indirect Bilirubin 1.2 H Aspartate Amino Transf (AST/SGOT) 40 Alanine Aminotransferase (ALT/SGPT) 70 H Alkaline Phosphatase 79 Creatine Kinase 100 Creatine Kinase Index 0.9 Creatinine Kinase MB (Mass) 0.94 Troponin I < 0.012 Total Protein 7.2 Albumin 4.0 Globulin 3.20 Albumin/Globulin Ratio 1.25 Triglycerides Level 127 Cholesterol Level 166 LDL Cholesterol, Calculated 113 HDL Cholesterol 28 Cholesterol/HDL Ratio 5.9 Prothrombin Time 14.5 Prothrombin Time Ratio 1.1 INR International Normalized Ratio 1.12 Medications Medication Current Medications Metoprolol Tartrate (Lopressor) 25 mg BID PO Last administered on 12/12/18at 10:28; Admin Dose 25 MG; Start 12/11/18 at 21:00 IV Flush (NS 3 ml) 3 ml PER PROTOCOL IV ; Start 12/11/18 at 16:30 Ondansetron HCl (Zofran Inj) 4 mg Q6H PRN IV NAUSEA/VOMITING; Start 12/11/18 at 16:30 Acetaminophen (Tylenol Tab) 650 mg Q6H PRN PO .PAIN 1-3 OR TEMP; Start 12/11/18 at 16:30 Enoxaparin Sodium (Lovenox) 40 mg DAILY SC Last administered on 12/12/18at 09:11; Admin Dose 40 MG; Start 12/12/18 at 09:00 Nadolol (Corgard) 40 mg AC DINNER PO Last administered on 12/11/18at 17:47; Admin Dose 40 MG; Start 12/11/18 at 17:30 Thiamine HCl (Vitamin B1) 100 mg AC BREAKFAST PO Last administered on 12/12/18at 08:44; Admin Dose 100 MG; Start 12/12/18 at 07:00; Stop 12/19/18 at 06:59 Methimazole (Tapazole) 10 mg AC BREAKFAST PO Last administered on 12/12/18at 08:45; Admin Dose 10 MG; Start 12/12/18 at 07:00 EARLE ABBASI NP Dec 12, 2018 12:21
--- NOTE | 2018-12-12 17:10 | CONS ---
Assessment/Plan Assessment/Plan Problems: (1) Hyperthyroidism Status: Acute Comment: Is stable using combination of beta-blockade with antithyroid drug therapy. Please note will take 5 weeks for the antithyroid drug therapy to equilibrate. As such she do not need to repeat the thyroid function test prior to that unless something else stimulates the question. He is on beta-blockade using metoprolol given the abnormalities identified on the echocardiogram (2) Grade III diastolic dysfunction Status: Chronic Comment: Concur with rate control and better blood pressure control for this level of diastolic dysfunction (3) Systolic dysfunction Status: Chronic Comment: Beta-blockade using metoprolol as opposed to nadolol for this specific indication, with afterload reduction therapy (4) Hepatic cirrhosis due to chronic hepatitis C infection Status: Chronic Comment: Noted. The patient is status post Harvoni therapy. Given the prior history of varices and his alcohol consumption agree with repeating his evaluation (5) Esophageal varices determined by endoscopy Status: Chronic Comment: We will repeat EGD in the morning (6) Alcohol abuse, episodic Status: Chronic Comment: On thiamine Consultation Date/Type/Reason Admit Date/Time Dec 11, 2018 at 13:47 Initial Consult Date 12/12/18 Type of Consult Endocrinology Reason for Consultation Thyrotoxicosis with low sedimentation rate and normal WBC; admit with A. fib with rapid ventricular response Requesting Provider: EARLE ABBASI NP Date/Time of Note DATE: 12/12/18 TIME: 17:07 24 HR Interval Summary Free Text/Dictation He reports she is feeling better. Constitutional: no complaints Detailed Summary Cardiovascular: no complaints Endocrine: no complaints Exam/Review of Systems Exam Vitals Vital Signs Date Temp Pulse Resp B/P (MAP) Pulse Ox O2 O2 Flow FiO2 Time Delivery Rate 12/12/18 91 16:00 12/12/18 97.6 22 123/91 96 Room Air 15:26 (102) Intake and Output 12/11/18 12/11/18 12/12/18 1515:00 23:00 07:00 IntakeIntake Total 120 ml 420 ml BalanceBalance 120 ml 420 ml Constitutional: alert, oriented Neck: supple, non-tender Respiratory: clear to auscultation, normal air movement Results Result Diagram: 12/12/18 0623 12/12/18 0623 Results 24hrs Laboratory Tests Test 12/12/18 06:23 12/12/18 09:18 White Blood Count 8.5 Red Blood Count 5.74 Hemoglobin 17.3 Hematocrit 50.7 Mean Corpuscular Volume 88.3 Mean Corpuscular Hemoglobin 30.1 Mean Corpuscular Hemoglobin Concent 34.1 Red Cell Distribution Width 13.2 Platelet Count 151 Mean Platelet Volume 13.0 H Immature Granulocytes % 0.200 Neutrophils % 43.9 Lymphocytes % 42.3 Monocytes % 8.2 Eosinophils % 4.8 Basophils % 0.6 Nucleated Red Blood Cells % 0.0 Immature Granulocytes # 0.020 Neutrophils # 3.7 Lymphocytes # 3.6 H Monocytes # 0.7 Eosinophils # 0.4 Basophils # 0.1 Nucleated Red Blood Cells # 0.0 Erythrocyte Sedimentation Rate 2.0 Sodium Level 144 Potassium Level 5.0 Chloride Level 106 Carbon Dioxide Level 30 Anion Gap 8 Blood Urea Nitrogen 18 Creatinine 1.05 Est Glomerular Filtrat Rate mL/min > 60 Glucose Level 83 Calcium Level 10.4 H Phosphorus Level 4.7 Magnesium Level 1.9 Total Bilirubin 1.2 Direct Bilirubin 0.00 Indirect Bilirubin 1.2 H Aspartate Amino Transf (AST/SGOT) 40 Alanine Aminotransferase (ALT/SGPT) 70 H Alkaline Phosphatase 79 Creatine Kinase 100 Creatine Kinase Index 0.9 Creatinine Kinase MB (Mass) 0.94 Troponin I < 0.012 Total Protein 7.2 Albumin 4.0 Globulin 3.20 Albumin/Globulin Ratio 1.25 Triglycerides Level 127 Cholesterol Level 166 LDL Cholesterol, Calculated 113 HDL Cholesterol 28 Cholesterol/HDL Ratio 5.9 Prothrombin Time 14.5 Prothrombin Time Ratio 1.1 INR International Normalized Ratio 1.12 Medications Medication Current Medications Metoprolol Tartrate (Lopressor) 25 mg BID PO Last administered on 12/12/18at 10:28; Admin Dose 25 MG; Start 12/11/18 at 21:00 IV Flush (NS 3 ml) 3 ml PER PROTOCOL IV ; Start 12/11/18 at 16:30 Ondansetron HCl (Zofran Inj) 4 mg Q6H PRN IV NAUSEA/VOMITING; Start 12/11/18 at 16:30 Acetaminophen (Tylenol Tab) 650 mg Q6H PRN PO .PAIN 1-3 OR TEMP; Start 12/11/18 at 16:30 Thiamine HCl (Vitamin B1) 100 mg AC BREAKFAST PO Last administered on 12/12/18at 08:44; Admin Dose 100 MG; Start 12/12/18 at 07:00; Stop 12/19/18 at 06:59 Methimazole (Tapazole) 10 mg AC BREAKFAST PO Last administered on 12/12/18at 08:45; Admin Dose 10 MG; Start 12/12/18 at 07:00 Lisinopril (Zestril) 2.5 mg DAILY PO ; Start 12/13/18 at 09:00 ARIA YANG MD Dec 12, 2018 17:10
[2018-12-12] MEDS ORDERED: APIXABAN 5 MG TABLET PO SCH (21:00)
[2018-12-13] VITALS (15 sets, daily range): BP systolic 109–174; BP diastolic 72–134; PULSE 73–179; RESP 12–20
[2018-12-13] MEDS ORDERED: traZODone 50 MG TAB PO SCH ×2 (00:45→21:00)
[2018-12-13] MEDS ORDERED: LISINOPRIL 5 MG TAB PO SCH (09:00)
[2018-12-13] MEDS: THIAMINE 100 MG TAB PO SCH (09:14)
[2018-12-13] MEDS: METOPROLOL 25 MG TAB PO SCH (09:14)
[2018-12-13] MEDS: METHIMAZOLE 5 MG TAB PO SCH (09:14)
[2018-12-13] MEDS ORDERED: METO-448 PO (10:13)
[2018-12-13] MEDS ORDERED: THIA100T56 PO (10:13)
[2018-12-13] MEDS ORDERED: LISI-313 PO (10:13)
[2018-12-13] MEDS ORDERED: METH-493 PO (10:13)
--- NOTE | 2018-12-13 11:44 | PREAC ---
Date/Time of Note Date/Time of Note DATE: 12/13/18 TIME: 11:42 Anesthesia Eval and Record Evaluation Time Pre-Procedure Interview DATE: 12/13/18 TIME: 11:42 Age 53 Sex male NPO: 8 hrs Preoperative diagnosis cirrhosis Planned procedure EGD Past Medical History Past Medical History: Includes Cardio: Arrythmia (atrial fibrillation), CHF Endo: Hyperthyroid Hepatic: Hepatitis, Cirrhosis Infection(s): Hep C Surgery & Anesthesia Issues No known issue Meds Anticoagulation: No Beta Ana Paula within 24 hr: Yes Reason Beta Ana Paula not given: Bradycarida, Hypotension Active Scripts Thiamine* (Vitamin B-1*) 100 Mg Tablet, 100 MG PO AC BREAKFAST, #30 TAB Prov:EARLE ABBASI NP 12/13/18 Methimazole* (Methimazole*) 5 Mg Tablet, 10 MG PO AC BREAKFAST, #30 TAB Prov:EARLE ABBASI NP 12/13/18 Metoprolol Tartrate* (Lopressor*) 25 Mg Tab, 25 MG PO BID, #60 TAB Prov:EARLE ABBASI NP 12/13/18 Lisinopril* (Lisinopril*) 5 Mg Tablet, 2.5 MG PO DAILY for 30 Days, #15 TAB 2.5 mg (half tablet) p.o. daily. Prov:EARLE ABBASI NP 12/13/18 Current Medications Metoprolol Tartrate (Lopressor) 25 mg BID PO Last administered on 12/13/18at 09:14; Admin Dose 25 MG; Start 12/11/18 at 21:00 IV Flush (NS 3 ml) 3 ml PER PROTOCOL IV ; Start 12/11/18 at 16:30 Ondansetron HCl (Zofran Inj) 4 mg Q6H PRN IV NAUSEA/VOMITING; Start 12/11/18 at 16:30 Acetaminophen (Tylenol Tab) 650 mg Q6H PRN PO .PAIN 1-3 OR TEMP; Start 12/11/18 at 16:30 Thiamine HCl (Vitamin B1) 100 mg AC BREAKFAST PO Last administered on 12/13/18at 09:14; Admin Dose 100 MG; Start 12/12/18 at 07:00; Stop 12/19/18 at 06:59 Methimazole (Tapazole) 10 mg AC BREAKFAST PO Last administered on 12/13/18at 09:14; Admin Dose 10 MG; Start 12/12/18 at 07:00 Lisinopril (Zestril) 2.5 mg DAILY PO Last administered on 12/13/18at 09:14; Admin Dose 2.5 MG; Start 12/13/18 at 09:00 Trazodone HCl (Desyrel) 25 mg HS PO Last administered on 12/13/18at 00:46; Admin Dose 25 MG; Start 12/13/18 at 00:45 Meds reviewed: Yes Allergies Coded Allergies: No Known Allergy (Unverified , 12/11/18) Allergies Reviewed: Yes Labs/Studies Labs Reviewed: Reviewed by anesthesiologist Result Diagram: 12/13/18 0555 12/13/18 0555 Laboratory Tests 12/13/18 05:55 test: N/A Studies: ECG, CXR Pre-procedure Exam Last vitals Vital Signs Date Temp Pulse Resp B/P (MAP) Pulse Ox O2 O2 Flow FiO2 Time Delivery Rate 12/13/18 97.9 89 18 125/82 98 Room Air 11:28 (96) Airway: Adequate mouth opening, Adequate thyromental dist Mallampati: Mallampati II Teeth: Normal Lung: Normal Heart: Normal ASA Physical Status ASA physical status: 3 Emergency: None Planned Anesthetic General/MAC: Mask Planned Pain Management Parenteral pain med Pre-operative Attestations Prior to commencing anesthesia and surgery, the patient was re-evaluated, there was verification of: *The patient's identity *The results of appropriate recent lab work and preoperative vital signs *The above evaluation not changing prior to induction *Anesthetic plan, risk benefits, alternative and complications discussed with patient/family; questions answered; patient/family understands, accepts and wishes to proceed. LATOYA PORTER MD December 13, 2018 11:44
[2018-12-13] MEDS ORDERED: LIDOCAINE 2% (SDV) 5 ML INJ ONE (12:21)
[2018-12-13] MEDS ORDERED: PROPOFOL 20 ML ONE (12:21)
[2018-12-13] MEDS ORDERED: HYDROmorphONE 1 MG/5 ML IV SYRINGE IV PRN ×3 (12:30→13:30)
[2018-12-13] MEDS ORDERED: ONDANSETRON 4 MG INJ IV PRN (12:30)
[2018-12-13] MEDS ORDERED: CIPROFLOXACIN 400MG/D5W 0 ML ONE (12:57)
[2018-12-13] MEDS ORDERED: FENTAnyl 50 MCG/ML VIAL ONE (12:59)
[2018-12-13] MEDS ORDERED: ETOMIDATE 20 MG INJ ONE (12:59)
--- NOTE | 2018-12-13 13:03 | CONS ---
Assessment/Plan Assessment/Plan Problems: (1) Hyperthyroidism Status: Acute Comment: Stable on medication therapy without evidence of untoward side effects or complications Consultation Date/Type/Reason Admit Date/Time Dec 11, 2018 at 13:47 Initial Consult Date 12/12/18 Type of Consult Endocrinology Reason for Consultation Thyrotoxicosis Requesting Provider: EARLE ABBASI NP Date/Time of Note DATE: 12/13/18 TIME: 13:02 24 HR Interval Summary Free Text/Dictation Patient is down getting EGD Exam/Review of Systems Exam Vitals Vital Signs Date Temp Pulse Resp B/P (MAP) Pulse Ox O2 O2 Flow FiO2 Time Delivery Rate 12/13/18 97.8 93 12 134/90 98 Room Air 11:58 (105) Intake and Output 12/12/18 12/12/18 12/13/18 1515:00 23:00 07:00 IntakeIntake Total 1080 ml BalanceBalance 1080 ml Exam No change in examination Results Result Diagram: 12/13/18 0555 12/13/18 0555 Results 24hrs Laboratory Tests Test 12/13/18 05:55 White Blood Count 8.2 Red Blood Count 5.94 Hemoglobin 17.7 Hematocrit 52.0 Mean Corpuscular Volume 87.5 Mean Corpuscular Hemoglobin 29.8 Mean Corpuscular Hemoglobin Concent 34.0 Red Cell Distribution Width 12.9 Platelet Count 137 L Mean Platelet Volume 12.6 H Immature Granulocytes % 0.200 Neutrophils % 45.7 Lymphocytes % 39.9 Monocytes % 8.1 Eosinophils % 5.5 Basophils % 0.6 Nucleated Red Blood Cells % 0.0 Immature Granulocytes # 0.020 Neutrophils # 3.7 Lymphocytes # 3.3 H Monocytes # 0.7 Eosinophils # 0.5 Basophils # 0.1 Nucleated Red Blood Cells # 0.0 Prothrombin Time 14.5 Prothrombin Time Ratio 1.1 INR International Normalized Ratio 1.12 Activated Partial Thromboplast Time 28.6 Sodium Level 142 Potassium Level 3.9 Chloride Level 109 Carbon Dioxide Level 22 Anion Gap 11 Blood Urea Nitrogen 18 Creatinine 0.97 Est Glomerular Filtrat Rate mL/min > 60 Glucose Level 100 Calcium Level 9.8 Phosphorus Level 4.7 Magnesium Level 1.9 Total Bilirubin 0.7 Direct Bilirubin 0.00 Indirect Bilirubin 0.7 Aspartate Amino Transf (AST/SGOT) 39 Alanine Aminotransferase (ALT/SGPT) 65 Alkaline Phosphatase 79 Total Protein 7.3 Albumin 3.9 Globulin 3.40 H Albumin/Globulin Ratio 1.14 Medications Medication Current Medications Metoprolol Tartrate (Lopressor) 25 mg BID PO Last administered on 12/13/18at 09:14; Admin Dose 25 MG; Start 12/11/18 at 21:00 IV Flush (NS 3 ml) 3 ml PER PROTOCOL IV ; Start 12/11/18 at 16:30 Ondansetron HCl (Zofran Inj) 4 mg Q6H PRN IV NAUSEA/VOMITING; Start 12/11/18 at 16:30 Acetaminophen (Tylenol Tab) 650 mg Q6H PRN PO .PAIN 1-3 OR TEMP; Start 12/11/18 at 16:30 Thiamine HCl (Vitamin B1) 100 mg AC BREAKFAST PO Last administered on 12/13/18at 09:14; Admin Dose 100 MG; Start 12/12/18 at 07:00; Stop 12/19/18 at 06:59 Methimazole (Tapazole) 10 mg AC BREAKFAST PO Last administered on 12/13/18at 09:14; Admin Dose 10 MG; Start 12/12/18 at 07:00 Lisinopril (Zestril) 2.5 mg DAILY PO Last administered on 12/13/18at 09:14; Admin Dose 2.5 MG; Start 12/13/18 at 09:00 Trazodone HCl (Desyrel) 25 mg HS PO Last administered on 12/13/18at 00:46; Admin Dose 25 MG; Start 12/13/18 at 00:45 Hydromorphone HCl (Dilaudid) 0.2 mg PACU PRN IV MILD PAIN 1-3; Start 12/13/18 at 12:30; Stop 12/13/18 at 17:00 Hydromorphone HCl (Dilaudid) 0.4 mg PACU PRN IV MOD PAIN 4-6; Start 12/13/18 at 12:30; Stop 12/13/18 at 17:00 Ondansetron HCl (Zofran Inj) 4 mg PACU ORDER PRN IV NAUSEA/VOMITING; Start 12/13/18 at 12:30; Stop 12/13/18 at 17:00 ARIA YANG MD December 13, 2018 13:03
[2018-12-13] MEDS ORDERED: LABETALOL HCL 20MG INJ ONE (13:23)
[2018-12-13] MEDS ORDERED: LABETALOL HCL 20MG INJ IV PRN (13:30)
[2018-12-13] MEDS ORDERED: FENTAnyl 50 MCG/ML VIAL IV PRN (13:30)
--- NOTE | 2018-12-13 13:30 | PAC ---
Date/Time of Note Date/Time of Note DATE: 12/13/18 TIME: 13:29 Post-Anesthesia Notes Post-Anesthesia Note Last documented vital signs Vital Signs Date Temp Pulse Resp B/P (MAP) Pulse Ox O2 O2 Flow FiO2 Time Delivery Rate 12/13/18 97.8 93 12 134/90 98 Room Air 11:58 (105) Activity: WNL Respiratory function: WNL Cardiovascular function: WNL Mental status: Baseline Pain reasonably controlled: Yes Hydration appropriate: Yes Nausea/Vomiting absent: Yes Comments BP: 126/90 HR: 90 RR: 15 T: 98 SaO2: 96% LATOYA HALL MD December 13, 2018 13:30
[2018-12-13] MEDS ORDERED: PANT40TA4 PO ×2 (13:38→13:56)
[2018-12-13] MEDS ORDERED: APIX5TAB PO (13:38)
--- NOTE | 2018-12-13 14:29 | PDOCDIS ---
Discharge Instructions CONDITION [id number] Patient Condition: [id number] Stable HOME CARE INSTRUCTIONS: [id number] Diet Instructions: [id number] Low Fat /Cholesterol FOLLOW UP/APPOINTMENTS Follow-up Plan Shailesh Moody MD Specialty: Internal Medicine Office Address: [address] [place] [address] [place], [place] [id number] Office OTHER ORDERS: Other Orders: 1. Take a low-cholesterol diet. 2. Resume activities as tolerated. 3. Start taking new medications (Protonix, Lopressor, methimazole, lisinopril, and Protonix). Start taking Eliquis (blood thinner) only from 12/20/2018. 4. Avoid using NSAIDS (aspirin, Aleve, ibuprofen, Motrin, etc.). 5. Please go to your primary care physician at the earliest. Have your primary care physician arrange for outpatient endocrinology and outpatient cardiology follow-up. 6. Please go to the nearest emergency room if you have any chest pain, si gnificant shortness of breath, bleeding in stool or vomit, or any other unusual signs/symptoms. EARLE ABBASI NP December 13, 2018 14:29
--- NOTE | 2018-12-13 14:37 | DS ---
Date/Time of Note Date/Time of Note DATE: 12/13/18 TIME: 14:35 Discharge Summary Admission/Discharge Info Admit Date/Time Dec 11, 2018 at 13:47 Discharge Date/Time Discharge Diagnosis 1. A. fib with RVR. 2. Hyperthyroidism. 3. Cardiomyopathy (newly diagnosed). 4. History of hepatitis C and cirrhosis. 5. Alcohol abuse. 6. Duodenal ulcer. 7. Secondary esophageal varices. Patient Condition: Stable (Will need to be) Consults 1. Lang Long MD, Cardiology. 2. Patrick Garcia MD, Endocrinology. 3. Kodi Holguin MD, Gastroenterology. Procedures Esophagogastroduodenoscopy on 12/13/2018 Impression: 1. Secondary esophageal varices without bleeding. 2. Acute duodenal ulcer without hemorrhage or perforation. 2D Echocardiogram Conclusions: Mild concentric left ventricular hypertrophy. Mild enlargement of left ventricle cavity. Severe global left ventricular systolic dysfunction. Ejection fraction is visually estimated at 30 %. Tissue Doppler/Mitral Doppler indices are consistent with restrictive physiology with markedly elevated left atrial pressure (Stage III-IV diastolic dysfunction). There is mild enlargement of left atrium. Normal appearance and function of the mitral valve with trace physiologic regurgitation. No significant aortic stenosis or insufficiency. Aortic cusps appear mildly calcified. Normal appearance of the tricuspid valve. Unable to obtain RVSP due to minimal presence of tricuspid regurgitation. Hx of Present Illness Reason for admission: Dyspnea, palpitations, A. fib with RVR in the emergency room. Consultants 1. Lang Long MD, Cardiology. 2. Phillips MD, Endocrinology. This is a 53-year-old male with past medical history of hepatitis C and underlying cirrhosis currently in remission who came to the emergency room with chief complaint of dyspnea and palpitations. The patient verbalized that he has had intermittent episodes of palpitations for the past few weeks or so. He sought medical attention at the local clinic and they were unable to help him. He came to the emergency room on 12/11/2018 because of significant shortness of breath. In the emergency room, the patient was noticed to be in atrial fibrillation with rapid ventricular response. The patient was given a single dose of propranolol with improvement in the heart rate. The patient denied any chest pain. He was complaining of nonspecific dizziness. He also complained of floaters occasionally. He denied any nausea, vomiting, diaphoresis, fevers, or chills. In the emergency room at [facility], he was noticed to have A. fib with RVR. He was given aspirin along with beta-blockers. The patient's ini tial troponins were negative. The patient was noted to have evidence of underlying hyperthyroidism. Hospital Course The patient was admitted to inpatient setting. A cardiology consult and endocrinology consult was obtained.The patient was started on rate control therapy with beta-blockers. Etiology of the patient's atrial fibrillation could have been secondary to his underlying hyperthyroidism. The patient was newly diagnosed as having hyperthyroidism. The patient was started on methimazole along with beta-blockers. Meanwhile, cardiology evaluated the patient and recommended to start the patient on therapeutic anticoagulation to decrease stroke risk. However, the patient has a history of hepatitis cirrhosis along with esophageal varices. Therefore, the ems director recommended gastroenterology evaluation before initiating the patient on therapeutic anti coagulation. Therefore, the patient underwent an esophagogastroduodenoscopy on 12/13/2018 that showed a duodenal ulcer. Therefore, the ward service supervisor recommended avoiding any NSAIDs. The ward service supervisor recommended to start the patient on Eliquis only after 1 week. Meanwhile, case management order was put in to confirm with the medical insurance for confirming that the patient is eligible for getting Eliquis. This was confirmed and the patient had Eliquis delivered at the patient's bedside. Meanwhile, the patient was noticed to have a cardiomyopathy with ejection fraction of 30%. Etiology of the patient's cardiomyopathy is unclear. The patient needs further work-up as outpatient including a work-up for any coronary artery disease because of the patient's newly diagnosed cardiomyopathy. The patient was already on beta-blockers for his underlying A. fib and hyperthyroidism. The patient was also started on low-dose AVA inhibitors. The patient has underlying history of alcohol abuse. The patient was on thiamine supplementation. The patient had a stable hospital course. The patient is stable to be discharged home, to be followed up with outpatient cardiology and endocrinology. Discharge Instructions 1. Take a low-cholesterol diet. 2. Resume activities as tolerated. 3. Start taking new medications (Protonix, Lopressor, methimazole, lisinopril, and Protonix). Start taking Eliquis (blood thinner) only from 12/20/2018. 4. Avoid using NSAIDS (aspirin, Aleve, ibuprofen, Motrin, etc.). 5. Please go to your primary care physician at the earliest. Have your primary care physician arrange for outpatient endocrinology and outpatient cardiology follow-up. 6. Please go to the nearest emergency room if you have any chest pain, signifi cant shortness of breath, bleeding in stool or vomit, or any other unusual signs/symptoms. The patient verbalized understanding of his discharge instructions. At this time I would like to thank all the consultants for seeing the patient, doing the necessary procedures, and providing clinical recommendations. The patient was seen in collaboration with Dr. Sharma. Home Meds Active Scripts Pantoprazole* (Pantoprazole*) 40 Mg Tablet.dr, 40 MG PO DAILY@06, #30 TAB Prov:EARLE ABBASI NP 12/13/18 Apixaban* (Eliquis*) 5 Mg Tablet, 5 MG PO BID, #60 TAB Start taking only from 12/20/2018 Prov:EARLE ABBASI NP 12/13/18 Thiamine* (Vitamin B-1*) 100 Mg Tablet, 100 MG PO AC BREAKFAST, #30 TAB Prov:EARLE ABBASI NP 12/13/18 Methimazole* (Methimazole*) 5 Mg Tablet, 10 MG PO AC BREAKFAST, #30 TAB Prov:EARLE ABBASI NP 12/13/18 Metoprolol Tartrate* (Lopressor*) 25 Mg Tab, 25 MG PO BID, #60 TAB Prov:EARLE ABBASI NP 12/13/18 Lisinopril* (Lisinopril*) 5 Mg Tablet, 2.5 MG PO DAILY for 30 Days, #15 TAB 2.5 mg (half tablet) p.o. daily. Prov:EARLE ABBASI NP 12/13/18 Follow-up Plan Shailesh Moody MD Specialty: Internal Medicine Office Address: [address] [place] [address] Office Primary Care Provider Not On Staff Doctor Time spent on discharge: > 30 minutes Pending Labs Laboratory Tests Test 12/13/18 05:55 White Blood Count 8.2 10^3/ul (4.8-10.8) Red Blood Count 5.94 10^6/ul (4.70-6.10) Hemoglobin 17.7 g/dl (14.0-18.0) Hematocrit 52.0 % (42.0-52.0) Mean Corpuscular Volume 87.5 fl (82.0-101.0) Mean Corpuscular Hemoglobin 29.8 pg (29.0-33.0) Mean Corpuscular Hemoglobin Concent 34.0 g/dl (32.0-37.0) Red Cell Distribution Width 12.9 % (11.5-14.5) Platelet Count 137 10^3/UL (140-415) Mean Platelet Volume 12.6 fl (7.4-10.4) Immature Granulocytes % 0.200 % (0.001-0.429) Neutrophils % 45.7 % (39.0-77.0) Lymphocytes % 39.9 % (15.0-51.0) Monocytes % 8.1 % (0.0-11.0) Eosinophils % 5.5 % (0.0-7.0) Basophils % 0.6 % (0.0-2.0) Nucleated Red Blood Cells % 0.0 /100WBC (0.0-0.0) Immature Granulocytes # 0.020 10^3/ul (0.0-0.031) Neutrophils # 3.7 10^3/ul (1.6-7.5) Lymphocytes # 3.3 10^3/ul (0.8-2.9) Monocytes # 0.7 10^3/ul (0.3-0.9) Eosinophils # 0.5 10^3/ul (0.0-0.5) Basophils # 0.1 10^3/ul (0.0-0.1) Nucleated Red Blood Cells # 0.0 10^3/ul (0.0-0.0) Prothrombin Time 14.5 Sec (11.9-14.9) Prothrombin Time Ratio 1.1 INR International Normalized Ratio 1.12 Activated Partial Thromboplast Time 28.6 Sec (23.0-35.0) Sodium Level 142 mmol/L (135-144) Potassium Level 3.9 mmol/L (3.5-5.1) Chloride Level 109 mmol/L (97-110) Carbon Dioxide Level 22 mmol/L (21-31) Anion Gap 11 (5-13) Blood Urea Nitrogen 18 mg/dl (7-20) Creatinine 0.97 mg/dl (0.61-1.24) Est Glomerular Filtrat Rate mL/min > 60 mL/min (>60) Glucose Level 100 mg/dl (70-220) Calcium Level 9.8 mg/dl (8.4-10.2) Phosphorus Level 4.7 mg/dl (2.5-4.9) Magnesium Level 1.9 mg/dl (1.7-2.5) Total Bilirubin 0.7 mg/dl (0.2-1.3) Direct Bilirubin 0.00 mg/dl (0.00-0.20) Indirect Bilirubin 0.7 mg/dl (0-1.1) Aspartate Amino Transf (AST/SGOT) 39 IU/L (15-46) Alanine Aminotransferase (ALT/SGPT) 65 IU/L (13-69) Alkaline Phosphatase 79 IU/L (42-121) Total Protein 7.3 g/dl (6.1-8.1) Albumin 3.9 g/dl (3.3-4.9) Globulin 3.40 g/dl (1.3-3.2) Albumin/Globulin Ratio 1.14 EARLE ABBASI NP December 13, 2018 14:37
[2018-12-14] MEDS ORDERED: PANTOPRAZOLE (EC) 40 MG TAB PO SCH (06:00)
== END 2018-12-13 17:01 | disposition home or self-care (01) | DRG 309 ==
LOC: E/R 10:09 → TEL 13:47
PROVIDERS: ADMIT Internal Medicine; ATTEND Internal Medicine
PROC: 0DB68ZX Excision of Stomach, Via Natural or Artificial Opening Endoscopic, Diagnostic (ICD-10-PCS; principal; 2018-12-13 12:30)
DX: I48.91 Unspecified atrial fibrillation (principal); I85.10 Secondary esophageal varices without bleeding; E05.90 Thyrotoxicosis, unspecified without thyrotoxic crisis or storm; B18.2 Chronic viral hepatitis C; K74.60 Unspecified cirrhosis of liver; F10.10 Alcohol abuse, uncomplicated; I42.9 Cardiomyopathy, unspecified; E21.3 Hyperparathyroidism, unspecified; Z87.891 Personal history of nicotine dependence; K29.70 Gastritis, unspecified, without bleeding; K26.9 Duodenal ulcer, unspecified as acute or chronic, without hemorrhage or perforation
CPT/HCPCS: 36415; 71045; 80053; 80061; 82550; 82553; 83036; 83690; 83735; 83880; 84100; 84439; 84443; 84481; 84484; 85025; 85610; 85651; 85730; 86803; 87340; 88305; 88312; 93005; 93306; J0744; J1650; J3010; J3411; J7030